=== PATIENT | male | born 1965 | race Caucasian/White ===

== ENCOUNTER → 2018-05-10 | Outpatient (CLI) | payer OTHER ==
--- NOTE | 2018-05-13 13:36 | CPEEG ---
[f rep st] ELECTROENCEPHALOGRAM DATE OF STUDY: 05/10/2018 INTERPRETATION: This EEG is abnormal due to the presence of potentially epileptogenic abnormalities over the left temporal head region. These findings would be consistent with a focal seizure disorder. The patient did not have any clinical events or electrographic seizure discharges during the awake or sleep recordings. I left a message with the patient's primary neurologic provider, Dr. Blaze Cuellar, regarding the results of this study. REPORT: This EEG contains 10 Hz alpha activity over the posterior head regions. The primary feature of this recording is the presence of left temporal sharp waves. These were present at rest. There was no specific additional activation with photic stimulation or hyperventilation. The patient became drowsy and fell asleep during the study. During drowsiness and sleep, there was continued activation of left temporal sharp waves. I left a message with the patient's primary neurologic provider, Dr. Blaze Cuellar, regarding the results of this study. In addition, we will send a copy of this report as soon as possible to Dr. Cuellar's office. Copy requested to: Blaze Cuellar MD [facility] /[id number]/MODL MTDD
== END ==
LOC: FCPNEURO 15:06
PROVIDERS: ATTEND Psychiatry & Neurology Clinical Neurophysiology
DX: R94.01 Abnormal electroencephalogram [EEG] (principal); R41.3 Other amnesia